=== PATIENT | female | born 1980 | race Caucasian/White ===

== ENCOUNTER 2023-03-21 17:24 | Emergency (ER) | payer OTHER ==
[2023-03-21 17:32] VITALS: BP 117/72; PULSE 92; RESP 18; TEMP 98.3; BMI 30.8
[2023-03-21] MEDS ORDERED: ACETAMINOPHEN 325 MG TABLET (FP) PO ONE (18:18)
[2023-03-21] MEDS ORDERED: ACETAMINOPHEN 325 MG TABLET (FP) ONE (18:22)
== END 2023-03-21 19:15 | disposition home or self-care (01) ==
LOC: JER 17:24
DX: Z76.0 Encounter for issue of repeat prescription (principal)
CPT/HCPCS: 99283-25

== ENCOUNTER 2023-05-05 18:28 | Emergency (ER) | payer OTHER ==
[2023-05-05 18:39] VITALS: BP 94/50; PULSE 82; RESP 18; TEMP 98.4; BMI 21.9
== END 2023-05-05 20:57 | disposition home or self-care (01) ==
LOC: JER 18:28 → JERFT 18:28
DX: Z48.01 Encounter for change or removal of surgical wound dressing (principal)
CPT/HCPCS: 99281-25